=== PATIENT | male | born 1990 | race Caucasian/White ===

== ENCOUNTER 2017-06-21 18:50 | Emergency (ER) | payer OTHER ==
[~2017-06-21] VITALS: Ht 190.5 cm; Wt 104.3 kg
[~2017-06-21 18:50] MED LIST: AUGMENTIN 875875 MG PO; HYDROXYZINE PAM50 MG PO; IBUPROFEN 800800 M1 PO; PREDNISOLONE 5 M5 M1 PO; TYLENOL325 MG PO; [UNRECOGNIZED DRUG - OTHER] PO
[2017-06-21 19:33] LABS: ABSOLUTE BASOPHILS 0.1 thou/uL (0.0-0.2); ABSOLUTE EOSINOPHILS 0.2 thou/uL (0.0-0.7); ABSOLUTE LYMPHOCYTES 3.5 thou/uL (0.8-5.3); ABSOLUTE MONOCYTES 0.6 thou/uL (0.0-1.2); ABSOLUTE NEUTROPHILS 6.3 thou/uL (1.6-8.1); BASOPHILS 1.1 %; EOSINOPHILS 1.5 %; HEMOGLOBIN 15.8 gm/dL (14.0-18.0); LYMPHOCYTES 32.6 %; MCH 29.1 pg (26.0-34.0); MCHC 34.5 g/dL (28.0-37.0); MCV 84.3 fL (80.0-100.0); MONOCYTES 5.7 %; MPV 9.5 fl. (7.2-11.1); NUCLEATED RBCS 0 /100WBC; PLATELET COUNT* 177 thou/uL (150-400); POLYS 59.1 %; RBC 5.45 mil/uL (4.50-6.00); RDW-CV 12.7 % (10.5-14.5); WBC 10.7 thou/uL (4.0-11.0)
[2017-06-21 19:40] LABS: ANION GAP 13 mmol/L (7-16); BUN 15 mg/dL (7-18); CALCIUM 9.4 mg/dL (8.5-10.1); CHLORIDE 101 mmol/L (98-107); CO2 26 mmol/L (21-32); GLUCOSE 89 mg/dL (70-99); POTASSIUM 3.5 mmol/L (3.5-5.1); SODIUM 140 mmol/L (136-145)
[2017-06-21 19:45] LABS: APTT 28.5 Seconds (25.0-31.3); PROTIME 10.1 Seconds (9.20-11.50)
[2017-06-21 19:46] LABS: ALBUMIN 4.5 g/dL (3.4-5.0); ALKALINE PHOSPHATASE 66 U/L (46-116); SGOT 17 U/L (15-37); SGPT 38 U/L (30-65); TOTAL BILIRUBIN 0.6 mg/dL (<0.1-1.0); TROPONIN-I LEVEL <0.06 ng/mL (<0.06)
[2017-06-21 21:01] VITALS: BP 134/80
--- NOTE | 2017-06-22 12:01 | EKG ---
[place] [address] ELECTROCARDIOGRAM REPORT Name: SHIMONOMERCHERI TYMARKROSALIO Garcia Room: [facility]#: [id number] Admission: 06/21/17 Attend Phys: Discharge: 06/21/17 Date of : 88 Report #: [id number] THIS REPORT FOR: //name// [facility] ED Test Date: 2017-06-21 Test Time: 18:57:24 Pat Name: MICHAEL ANDRADE Department: Room: Gender: Store Manager: KRISTEN Trevizo : 1990 Requested By: Regine Benz Order Number: [id number] MD: Ang Moura Measurements Intervals [place] Rate: 102 P: 66 GA: 155 QRS: 58 QRSD: 96 T: 47 QT: 348 QTc: 454 Interpretive Statements Sinus tachycardia Left atrial enlargement RSR' in V1 or V2, probably normal variant No previous ECG available for comparison Electronically Signed On 06-22-2017 12:00:48 RN [facility] by Ang Moura [email or web address] <ELECTRONICALLY SIGNED> By: Ang Moura MD, [facility] 06/22/17 1200 1856 56 Ang Moura MD, FACC /EPI
== END 2017-06-21 21:07 | disposition home or self-care (01) ==
LOC: M.ERS 18:50
PROVIDERS: Nurse Practitioner Family
DX: R07.89 Other chest pain (principal); F42.9 Obsessive-compulsive disorder, unspecified; Z91.041 Radiographic dye allergy status

== ENCOUNTER 2018-06-23 12:03 | Emergency (ER) | payer OTHER ==
[~2018-06-23] VITALS: Ht 193 cm; Wt 102.1 kg
[2018-06-23 12:50] LABS: HEMATOCRIT 46.2 % (42.0-52.0); HEMOGLOBIN 15.7 gm/dL (14.0-18.0); MCH 28.6 pg (26.0-34.0); MPV 9.3 fl. (7.2-11.1); NUCLEATED RBCS 0 /100WBC; PLATELET COUNT* 199 thou/uL (150-400); RDW-CV 13.1 % (10.5-14.5); WBC 16.9 thou/uL (4.0-11.0)
[2018-06-23 12:56] LABS: CREATININE 1.3 mg/dL (0.6-1.3); POTASSIUM 4.2 mmol/L (3.5-5.1)
[2018-06-23 13:01] LABS: ALBUMIN 4.1 g/dL (3.4-5.0); TOTAL BILIRUBIN 0.7 mg/dL (<0.1-1.0)
[2018-06-23 13:21] LABS: ABSOLUTE LYMPHOCYTES 0.3 thou/uL (0.8-5.3); ABSOLUTE MONOCYTES 0.8 thou/uL (0.0-1.2); ABSOLUTE NEUTROPHILS 15.7 thou/uL (1.6-8.1); PLATELET ESTIMATE ADEQUATE
[2018-06-23 13:37] LABS: URINE BILIRUBIN NEGATIVE (Negative); URINE BLOOD NEGATIVE (Negative); URINE CLARITY CLEAR; URINE COLOR YELLOW; URINE GLUCOSE-RANDOM NEGATIVE (Negative); URINE KETONES NEGATIVE (Negative); URINE LEUKOCYTES-REFLEX NEGATIVE (Negative); URINE NITRITE-REFLEX NEGATIVE (Negative); URINE PROTEIN NEGATIVE (Negative); URINE UROBILINOGEN 0.2 E.U./dl (0.2-1.0)
[2018-06-23] MEDS ORDERED: ZOFRAN ODT4 MG PO (16:19)
[2018-06-23 17:02] VITALS: BP 112/66
== END 2018-06-23 17:03 | disposition home or self-care (01) ==
LOC: M.ERS 12:03
PROVIDERS: Physician Assistant
DX: R11.2 Nausea with vomiting, unspecified (principal); R19.7 Diarrhea, unspecified; Z91.041 Radiographic dye allergy status

== ENCOUNTER 2019-08-12 11:10 | Emergency (ER) | payer OTHER ==
[~2019-08-12] VITALS: Ht 193 cm; Wt 104.3 kg
[~2019-08-12 11:10] MED LIST changes: +ZOFRAN ODT4 MG PO
[2019-08-12] MEDS ORDERED: PROAIR HFA8.5 GM INH (11:24)
[2019-08-12 12:08] LABS: INFLUENZA A ANTIGEN Negative (Negative); INFLUENZA B ANTIGEN Negative (Negative)
[2019-08-12 12:37] LABS: ABSOLUTE EOSINOPHILS 0.1 thou/uL (0.0-0.7); ABSOLUTE LYMPHOCYTES 2.2 thou/uL (0.8-5.3); ABSOLUTE MONOCYTES 0.4 thou/uL (0.0-1.2); ABSOLUTE NEUTROPHILS 4.9 thou/uL (1.6-8.1); BASOPHILS 0.6 %; EOSINOPHILS 0.9 %; HEMATOCRIT 43.7 % (42.0-52.0); HEMOGLOBIN 15.6 gm/dL (14.0-18.0); LYMPHOCYTES 28.8 %; MCH 29.2 pg (26.0-34.0); MCHC 35.7 g/dL (28.0-37.0); MCV 81.9 fL (80.0-100.0); MONOCYTES 5.5 %; MPV 9.9 fl. (7.2-11.1); NUCLEATED RBCS 0 /100WBC; PLATELET COUNT* 188 thou/uL (150-400); POLYS 64.2 %; RBC 5.34 mil/uL (4.50-6.00); RDW-CV 13.1 % (10.5-14.5); WBC 7.7 thou/uL (4.0-11.0)
[2019-08-12 12:45] LABS: CALCIUM 9.1 mg/dL (8.5-10.1); CREATININE 0.9 mg/dL (0.6-1.3)
[2019-08-12 12:57] LABS: ALBUMIN 4.2 g/dL (3.4-5.0); TOTAL BILIRUBIN 0.4 mg/dL (<0.1-1.0); TOTAL PROTEIN 7.7 g/dL (6.4-8.2)
[2019-08-12] MEDS ORDERED: ZYRTEC10 M5 PO (13:24)
[2019-08-12] MEDS ORDERED: ZPAK PO (13:24)
[2019-08-12] MEDS ORDERED: VENTOLIN HFA 1818 GM INH (13:24)
[2019-08-12 14:21] VITALS: BP 118/65
--- NOTE | 2019-08-12 15:39 | EKG ---
[place] [address] ELECTROCARDIOGRAM REPORT Name: SHIMONOMERCHERI TYMARKROSALIO Garcia Room: [facility]#: [id number] Admission: 08/12/19 Attend Phys: Discharge: 08/12/19 Date of : 88 Date of Service: 08/12/19 1209 Report #: [id number] THIS REPORT FOR: //name// [facility] ED Test Date: 2019-08-12 Test Time: 12:09:04 Pat Name: MICHAEL ANDRADE Department: Room: Gender: Clinical Writer: [place] : 1990 Requested By: Kathy Stern Order Number: [id number] MD: Terry Cox Measurements Intervals [place] Rate: 74 P: 30 [place]: 163 QRS: 9 QRSD: 94 T: 6 QT: 382 QTc: 424 Interpretive Statements Sinus rhythm Baseline wander in lead(s) V1 Compared to ECG 06/21/2017 18:57:24 Sinus tachycardia no longer present Atrial abnormality no longer present Electronically Signed On 08-12-2019 15:37:55 CDT by Terry Cox [email or web address] <ELECTRONICALLY SIGNED> By: Terry Cox MD, FACC 08/12/19 1537 1209 1209 Terry Cox MD, [facility] /EPI
== END 2019-08-12 14:21 | disposition home or self-care (01) ==
LOC: M.ERS 11:10
PROVIDERS: Nurse Practitioner Family
DX: J06.9 Acute upper respiratory infection, unspecified (principal); Z91.041 Radiographic dye allergy status